=== PATIENT | female | born 1955 ===

== ENCOUNTER 2017-07-29 11:11 | Emergency (ER) | payer OTHER ==
[2017-07-29 11:11] VITALS: BMI 29.0
[2017-07-29 12:25] LABS: RBC URINE < 1 /hpf (0-3); URINE BILIRUBIN NEGATIVE (NEGATIVE); URINE BLOOD NEGATIVE (NEGATIVE); URINE COLOR Yellow (YELLOW); URINE GLUCOSE (UA) NORMAL (Normal); URINE KETONE NEGATIVE (NEGATIVE); URINE LEUKOCYTE ESTERASE NEG Leu/uL (Negative); URINE PROTEIN NEGATIVE (NEGATIVE); URINE UROBILINOGEN NORMAL mg/dL (0.2-1.0); WBC URINE < 1 /hpf (0-5)
[2017-07-29 12:47] LABS: BASO # 0.1 K/uL (0.0-0.2); BASO % 0.8 % (0.0-2.0); EOS # 0.1 K/uL (0.0-0.7); EOS % 2.2 % (0.0-4.0); HEMATOCRIT 39.4 % (34.0-47.0); LYMPH # 1.8 K/uL (1.0-4.3); MEAN CELL VOLUME 86.5 fL (81.0-99.0); MEAN CORPUSCULAR HEMOGLOBIN 28.7 pg (27.0-31.0); MEAN CORPUSCULAR HGB CONC 33.2 g/dL (33.0-37.0); MEAN PLATELET VOLUME 9.1 fL (7.2-11.7); MONO # 0.5 K/uL (0.0-0.8); MONO % 7.7 % (0.0-10.0); RED CELL DISTRIBUTION WIDTH 14.3 % (11.5-14.5); WHITE BLOOD COUNT 6.6 K/uL (4.8-10.8)
[2017-07-29 12:53] LABS: CHLORIDE 103 mmol/L (98-107)
[2017-07-29 12:54] LABS: POTASSIUM 4.2 mmol/L (3.6-5.2); SODIUM 143 mmol/L (132-148)
[2017-07-29 12:56] LABS: GFR AFRICAN-AMERICAN > 60
[2017-07-29 12:57] LABS: ALB/GLOB RATIO 1.3 (1.0-2.1); ALKALINE PHOSPHATASE 78 U/L (38-126); ALT/SGPT 26 U/L (9-52); AST/SGOT 20 U/L (14-36); BILIRUBIN,TOTAL 0.9 mg/dL (0.2-1.3); BLOOD UREA NITROGEN 16 mg/dL (7-17); CARBON DIOXIDE 25 mmol/L (22-30); GLUCOSE,RANDOM 89 mg/dL (65-105); TOTAL PROTEIN 7.1 g/dL (6.3-8.3)
--- NOTE | 2017-07-29 13:23 | CT ---
PROCEDURE: CT abdomen and pelvis dated 07/29/2017. HISTORY: Right flank pain. Rule out kidney stone COMPARISON: Comparison made with CT scan abdomen pelvis 03/08/2015 go TECHNIQUE: Contiguous axial images of the abdomen and pelvis performed without oral or intravenous contrast. Coronal and Sagittal reformats generated. Radiation dose: Total exam DLP = 515.09 mGy-cm. This CT exam was performed using one or more of the following dose reduction techniques: Automated exposure control, adjustment of the mA and/or kV according to patient size, and/or use of iterative reconstruction technique. FINDINGS: LOWER THORAX: Lung bases clear. No infiltrate effusion or basilar pneumothorax. There is small hiatal hernia with slight wall thickening of the distal esophagus that could be due to protrusion of gastric mucosa. Possibility of esophagitis or other intrinsic/ invasive wall lesion cannot be excluded clinical correlation recommended. Heart size is within range of normal. No significant pericardial effusion. LIVER: Liver exhibits normal size measuring approximately 16 cm in CC dimension. No obvious hepatic mass collection or calcification seen on this noncontrast study. GALLBLADDER AND BILE DUCTS: Gallbladder is physiologically distended. No evidence of intraluminal gallbladder calculi. PANCREAS: Visualized portions the pancreas appear grossly unremarkable without obvious mass collection or calcification. No significant pancreatic ductal dilatation. SPLEEN: Spleen exhibits normal size and attenuation pattern without mass collection or calcification. ADRENALS: There are no adrenal lesions. KIDNEYS AND URETERS: The kidneys demonstrate relatively symmetric size. No evidence of nephrolithiasis or hydronephrosis. BLADDER: Urinary bladder is incompletely distended. No evidence of intraluminal urinary bladder calculi. REPRODUCTIVE: Apparent hysterectomy. Clinic correlation with surgical history. APPENDIX: Normal-appearing appendix best seen on coronal image number [id number] and axial image number [id number]. No periappendiceal inflammatory changes BOWEL: Evaluation of the bowel is limited due to lack of oral contrast material. Stomach is incompletely distended which may account for slight thick-walled appearance. Visualized loops of small bowel exhibit normal contour and caliber. No evidence acute mechanical small bowel obstruction. There appears to be a small amount fecalized content within the distal ileum. Stool and air seen throughout the colon. No definitive mural wall thickening. PERITONEUM: Unremarkable. No fluid collection. No free air. LYMPH NODES: Unremarkable. No enlarged lymph nodes. VASCULATURE: No evidence of abdominal aortic aneurysm. Minor partially calcified atherosclerotic plaque seen along the abdominal aorta. BONES: Mild multilevel degenerative spondylosis of the lower thoracic and lumbar spine. No acute compression fractures. OTHER FINDINGS: None. IMPRESSION: No evidence of nephrolithiasis or hydronephrosis. . No evidence of acute appendicitis or cholelithiasis. There is a small amount of fecalized content within the distal ileum
[2017-07-29 13:42] VITALS: RESP 18; TEMP 97.7; O2SAT 97
--- NOTE | 2017-07-29 14:04 | C.PDOC ---
History Of Present Illness 62 year old female presents to the ED with complaints of worsening, constant right lower back pain beginning yesterday. Patient notes at times pain radiates to right leg and associated nausea and chills. She states she has had similar symptoms in the past and was told she had a kidney stone. Patient denies dysuria , hematuria, vomiting, diarrhea, urinary retention, bowel/bladder incontinence, sensory changes. Time Seen by Provider: 07/29/17 12:03 Chief Complaint (Nursing): Back Pain History Per: Patient History/Exam Limitations: no limitations Onset/Duration Of Symptoms: Days (1 day), Worse Since (today) Current Symptoms Are (Timing): Still Present Quality Of Discomfort: "Pain" Severity: Moderate Previous Symptoms: Back Pain (kidney stone ) Associated Symptoms: None Exacerbating Factor(s): Movement Additional History Per: Prior Records Past Medical History Reviewed: Historical Data, Nursing Documentation, Vital Signs Vital Signs: Last Vital Signs Temp 97.7 F 07/29/17 13:41 Pulse 65 07/29/17 14:16 Resp 18 07/29/17 14:16 BP 137/79 07/29/17 14:16 Pulse Ox 97 07/29/17 14:39 - Medical History PMH: Cardia Arrhythmia (BRADYCARDIA), Diabetes, Gastritis, Hypothyroidism, TIA Surgical History: Tonsillectomy Family History: States: No Known Family Hx - Social History Hx Tobacco Use: No Hx Alcohol Use: No Hx Substance Use: No - Immunization History Hx Tetanus Toxoid Vaccination: Yes Hx Influenza Vaccination: No Hx Pneumococcal Vaccination: Yes Review Of Systems Except As Marked, All Systems Reviewed And Found Negative. Constitutional: Positive for: Chills. Negative for: Fever Cardiovascular: Negative for: Chest Pain, Palpitations Respiratory: Negative for: Cough, Shortness of Breath Gastrointestinal: Positive for: Nausea. Negative for: Vomiting, Abdominal Pain , Diarrhea Genitourinary: Negative for: Dysuria, Hematuria Musculoskeletal: Positive for: Back Pain, Leg Pain Neurological: Negative for: Weakness, Numbness Physical Exam - Physical Exam Appears: Well, Non-toxic, In Acute Distress (in mild pain ) Skin: Normal Color, Warm, Dry, No Rash Eye(s): bilateral: Normal Inspection Oral Mucosa: Moist Cardiovascular: Rhythm Regular Respiratory: Normal Breath Sounds, No Rales, No Rhonchi, No Wheezing Gastrointestinal/Abdominal: Normal Exam, Bowel Sounds, Soft, No Tenderness Back: No CVA Tenderness, No Vertebral Tenderness, Paraspinal Tenderness (right paralumbar tenderness to palpation) Extremity: Normal ROM Extremity: Bilateral: Atraumatic, Normal Color And Temperature, Normal ROM Neurological/Psych: Oriented x3, Normal Motor, Normal Sensation Gait: Steady ED Course And Treatment - Laboratory Results Result Diagrams: 07/29/17 12:42 07/29/17 12:42 O2 Sat by Pulse Oximetry: 97 (room air ) Pulse Ox Interpretation: Normal - CT Scan/US Abdominal Pelvis CT Other Rad Studies (CT/US): Read By Radiologist, Radiology Report Reviewed CT/US Interpretation: FINDINGS: LOWER THORAX: Lung bases clear. No infiltrate effusion or basilar pneumothorax. There is small hiatal hernia with slight wall thickening of the distal esophagus that could be due to protrusion of gastric mucosa. Possibility of esophagitis or other intrinsic/ invasive wall lesion cannot be excluded clinical correlation recommended. Heart size is within range of normal. No significant pericardial effusion. LIVER: Liver exhibits normal size measuring approximately 16 cm in CC dimension. No obvious hepatic mass collection or calcification seen on this noncontrast study. GALLBLADDER AND BILE DUCTS: Gallbladder is physiologically distended. No evidence of intraluminal gallbladder calculi. PANCREAS: Visualized portions the pancreas appear grossly unremarkable without obvious mass collection or calcification. No significant pancreatic ductal dilatation. SPLEEN: Spleen exhibits normal size and attenuation pattern without mass collection or calcification. ADRENALS: There are no adrenal lesions. KIDNEYS AND URETERS: The kidneys demonstrate relatively symmetric size. No evidence of nephrolithiasis or hydronephrosis. BLADDER: Urinary bladder is incompletely distended. No evidence of intraluminal urinary bladder calculi. REPRODUCTIVE: Apparent hysterectomy. Clinic correlation with surgical history. APPENDIX: Normal-appearing appendix best seen on coronal image number [id number] and axial image number [id number]. No periappendiceal inflammatory changes. BOWEL: Evaluation of the bowel is limited due to lack of oral contrast material. Stomach is incompletely distended which may account for slight thick-walled appearance. Visualized loops of small bowel exhibit normal contour and caliber. No evidence acute mechanical small bowel obstruction. There appears to be a small amount fecalized content within the distal ileum. Stool and air seen throughout the colon. No definitive mural wall thickening. PERITONEUM: Unremarkable. No fluid collection. No free air. LYMPH NODES: Unremarkable. No enlarged lymph nodes. VASCULATURE: No evidence of abdominal aortic aneurysm. Minor partially calcified atherosclerotic plaque seen along the abdominal aorta. BONES: Mild multilevel degenerative spondylosis of the lower thoracic and lumbar spine. No acute compression fractures. OTHER FINDINGS: None. IMPRESSION: No evidence of nephrolithiasis or hydronephrosis. . No evidence of acute appendicitis or cholelithiasis. There is a small amount of fecalized content within the distal ileum Progress Note: Blood work, UA, CT scan abd/pelvis ordered and reviewed. Patient given IV toradol. Reevaluation Time: 14:00 Reassessment Condition: Improved (On reassessment, patient is resting comfortably and states her pain has improved and she feels better. She is ambulating normally in ED. Blood work, UA, and CT scan (-) for acute findings. Rxs given for naprosyn and flexeril, and patient instructed to follow up with PMD/clinic in 1-2 days. She understands she should return to ED if symptoms worsen.) Disposition Counseled Patient/Family Regarding: Studies Performed, Diagnosis, Need For Followup, Rx Given - Disposition Referrals: [facility] [Outside] Disposition: HOME/ ROUTINE Disposition Time: 14:05 Condition: STABLE Additional Instructions: FOLLOW UP WITH YOUR DOCTOR/CLINIC IN 1-2 DAYS USE MEDICATIONS DIRECTED RETURN TO ED IF SYMPTOMS WORSEN Prescriptions: Cyclobenzaprine [Cyclobenzaprine HCl] 10 mg PO BID PRN #15 tab PRN Reason: Muscle Spasm Naproxen [Naprosyn Tab] 375 mg PO BID PRN #20 tab PRN Reason: pain Instructions: Acute Low Back Pain (ED) Forms: [employer] ([place]ian) Print Language: FAROESE - POA Present On Arrival: None - Clinical Impression Clinical Impression: Low back pain, Sciatica - Scribe Statement The provider has reviewed the documentation as recorded by the Scribe Renetta Thomas All medical record entries made by the Emiliibsteven were at my direction and personally dictated by me. I have reviewed the chart and agree that the record accurately reflects my personal performance of the history, physical exam, medical decision making, and the department course for this patient. I have also personally directed, reviewed, and agree with the discharge instructions and disposition.
[2017-07-29 14:17] VITALS: BP 137/79; PULSE 65
== END 2017-07-29 14:17 | disposition home or self-care (01) ==
LOC: C.ER 11:11
DX: M54.5 Low back pain (principal); E11.9 Type 2 diabetes mellitus without complications; E03.9 Hypothyroidism, unspecified; R00.1 Bradycardia, unspecified
CPT/HCPCS: 74176; 80053; 81001; 85025; 87086; 96374; 99284; J1885

== ENCOUNTER 2017-12-30 08:48 | Day surgery (SDC) | payer OTHER ==
[2017-10-14 09:59] VITALS: BMI 29.8
[2017-12-30] MEDS ORDERED: Lactated Ringer's 1,000 ML IV ONE (10:56)
[2017-12-30] MEDS ORDERED: Midazolam 2 MG/2 ML VIAL ONE (10:56)
[2017-12-30] MEDS ORDERED: Propofol 10 mg/ml Inj (20 ML) ONE (10:56)
[2017-12-30] MEDS ORDERED: Simethicone 40 mg/0.6 ml Liquid (30 ml) ONE (11:24)
[2017-12-30] MEDS ORDERED: Lactated Ringer's 500 ML IV SCH (11:30)
[2017-12-30 14:45] VITALS: TEMP 97.3
[2017-12-30 14:46] VITALS: O2SAT 100
[2017-12-30 15:02] VITALS: BP 117/62; PULSE 78; RESP 19
== END 2017-12-30 12:50 | disposition home or self-care (01) ==
LOC: C.ENDO 08:48
PROVIDERS: ATTEND Internal Medicine
DX: Z12.11 Encounter for screening for malignant neoplasm of colon (principal); R10.84 Generalized abdominal pain; B96.81 Helicobacter pylori [H. pylori] as the cause of diseases classified elsewhere; K64.4 Residual hemorrhoidal skin tags; K64.8 Other hemorrhoids; K44.9 Diaphragmatic hernia without obstruction or gangrene; K29.70 Gastritis, unspecified, without bleeding; Z86.19 Personal history of other infectious and parasitic diseases; D12.4 Benign neoplasm of descending colon
CPT/HCPCS: 43239; 45380; 88305; 88342; J2250; J2704; J7120